=== PATIENT | male | born 1965 | race Caucasian/White ===

== ENCOUNTER 2021-08-12 15:02 | Emergency (ER) | payer MEDICAID ==
[~2021-08-12] VITALS: Ht 170.2 cm; Wt 72.6 kg
--- NOTE | 2021-08-12 15:30 | NUR ---
R HAND PAIN S/P FALLING OFF A LADDER APPROX 3 FT HIGH. DENIES HEAD INJURY
[2021-08-12] MEDS ORDERED: NAPR-1164 PO (18:11)
--- NOTE | 2021-08-12 18:36 | NUR ---
Patient discharged to home in stable condition. Written and verbal after care instructions given. Patient verbalizes understanding of instruction.
[2021-08-12 18:58] VITALS: BP 128/93
== END 2021-08-12 18:59 | disposition home or self-care (01) ==
LOC: ER 15:05
DX: S63.501A Unspecified sprain of right wrist, initial encounter (principal); S60.221A Contusion of right hand, initial encounter; S50.311A Abrasion of right elbow, initial encounter; Z87.81 Personal history of (healed) traumatic fracture; W11.XXXA Fall on and from ladder, initial encounter; Y93.89 Activity, other specified; Y92.89 Other specified places as the place of occurrence of the external cause; Y99.8 Other external cause status
CPT/HCPCS: 73080-TC; 73110; 73130-TC; 73200-TC